=== PATIENT | male | born 1935 | race Caucasian/White ===

== ENCOUNTER 2017-07-11 09:28 | Outpatient (CLI) | payer MEDICARE ==
[2017-07-11 14:28] LABS: #Eosinphils 0.1 thou/uL (0.0-0.7); #Lymphocytes 2.1 thou/uL (1.20-3.40); #Monocytes 0.7 thou/uL (0.11-0.59); #Neutrophils 7.2 thou/uL (1.40-6.50); %Basophils 0.4 % (0.0-1.0); %Eosinophils 1.1 % (0.0-10.0); %Lymphocytes 20.7 % (21.0-51.0); %Monocytes 6.6 % (0.0-10.0); %Neutrophils 71.2 % (42.0-75.0); Hemoglobin 11.8 g/dL (14.0-18.0); Mean Corpuscular HGB CONC 32.8 g/dL (32.0-36.0); Mean Corpuscular Volume 94.5 fl (80.0-94.0); Mean Platelet Volume 7.1 fL (7.4-10.4); Platelet Count 239 thou/uL (130-400); RBC Distribution Width 13.9 % (11.5-14.5); Red Blood Cell (RBC) Count 3.79 mill/uL (4.70-6.10); White Blood Cell (WBC) Count 10.1 thou/uL (4.8-10.8)
[2017-07-11 14:33] LABS: INR-International Normal Ratio 1.3; PTT 36.3 SEC (22.9-36.1); Prothrombin Time 15.9 SEC (12.0-14.7)
[2017-07-11 14:35] LABS: Bilirubin Negative (Negative); Blood, Urine Negative (Negative); Clarity CLEAR (Clear); Glucose, Urine (Dipstick) Negative (Negative); Leukocyte Negative (Negative); Nitrite Negative (Negative); Protein, Urine (Dipstick) Negative (Neg-Trace); Specific Gravity, Urine 1.025 (1.002-1.036); Urobilinogen 0.2 mg/dL (0.2-1.0); pH, Urine 6.5 (5.0-9.0)
[2017-07-11 14:40] LABS: Bacteria/HPF None Seen HPF (None Seen); Hyaline Casts/LPF 0-3 HYALINE CAST LPF (0-3 Hyaline); Pathc Cast-AUWi Flag 0.29 (0-2.49); Squamous Epithelial 0-3 HPF (0-3); WBC/HPF 0-3 HPF (0-3)
[2017-07-11 14:50] LABS: Anion Gap 12 mmol/L (10-20); BUN (Urea Nitrogen) 26 mg/dL (8.4-25.7); Calc. Creatinine Clearance 0 mL/min (70-130); Calcium 10.1 mg/dL (7.8-10.44); Carbon Dioxide 24 mmol/L (23-31); Chloride 105 mmol/L (98-107); Estimated GFR-MDRD 85; Glucose 114 mg/dL (83-110); Potassium 4.8 mmol/L (3.5-5.1); Sodium 136 mmol/L (136-145)
--- NOTE | 2017-07-16 08:45 | EKG ---
Test Reason : Blood Pressure : / mmHG Vent. Rate : 060 BPM Atrial Rate : 067 BPM P-R Int : 000 ms QRS Dur : 204 ms QT Int : 458 ms P-R-T Axes : 000 -27 138 degrees QTc Int : 458 ms Electronic ventricular pacemaker When compared with ECG of 08-OCT-2010 06:57, Electronic ventricular pacemaker has replaced Atrial fibrillation Confirmed by RENAN WHEAT MD ([id number]) on 07/16/2017 8:44:50 AM Referred By: LEOBARDO Confirmed By:RENAN WHEAT MD
== END 2017-07-11 09:29 | disposition home or self-care (01) ==
LOC: LABBT 09:28
PROVIDERS: ATTEND Orthopaedic Surgery
DX: Z01.818 Encounter for other preprocedural examination (principal); M16.11 Unilateral primary osteoarthritis, right hip
CPT/HCPCS: 80048; 81001; 85025; 85610; 85730; 86850; 86900; 86901; 87081; 93005; 93010

== ENCOUNTER 2017-07-11 13:00 | Inpatient (IN) | payer MEDICARE ==
[2017-07-11 12:39] VITALS: BMI 24.3
--- NOTE | 2017-07-13 13:04 | HP ---
DATE OF ADMISSION: 07/17/2017 HISTORY OF PRESENT ILLNESS: The patient is a 81-year-old white male with a several year history of p rogressive right hip pain without injury. He has had progressive pain despite rest, restriction of a ctivities, use of a walker and a cane and lifestyle adjustments. His symptoms have becoming more jackson quently seen causing him to fall and interfering with day-to-day activities and quality of life inclu ding walking, getting dressed, and sleeping. PAST MEDICAL AND SURGICAL HISTORY: The patient has history of coronary artery disease, atrial fibril lation, and previous pacemaker. He has had cardiac stents and also a pituitary tumor. He has a hist ory of hypertension and seasonal allergies and previous eye surgery. He has been seen and cleared fo r surgery by Dr. Smith and Dr. Allen. CURRENT MEDICATIONS: Include Claritin, Azopt ophthalmic drops, atenolol, lisinopril, digoxin, Eliqui s, which he has stopped 3 days preoperatively, Tylenol. ALLERGIES: He is allergic to HYDROCODONE. FAMILY HISTORY: Otherwise unremarkable. SOCIAL HISTORY: Otherwise unremarkable. REVIEW OF SYSTEMS: Otherwise unremarkable. PHYSICAL EXAMINATION: GENERAL: Reveals a healthy male. HEENT: Unremarkable. NECK: Supple. CHEST: Clear. HEART: Regular rate and rhythm. ABDOMEN: Soft, nontender. RECTAL/GENITAL: Deferred. EXTREMITIES: Pertinent findings of the right hip. There is tenderness over the anterior right hip. There is decreased range of motion of the right hip and groin pain with internal rotation. There is a right antalgic gait. Leg lengths are equal. Neurovascular exam is intact. Straight leg raising is negative. X-RAY FINDINGS: X-rays of the right hip reveal severe DJD with no joint space remaining with signifi cant progression from previous x-rays. IMPRESSION: 1. Progressive degenerative arthritis, right hip. 2. History of atrial fibrillation. 3. History of atherosclerotic cardiovascular disease. 4. History of hypertension. 5. History of pacemaker. PLAN: Right total hip replacement. The nature of the surgery, length of recovery, and potential com plications such as infection, loss of motion, incomplete relief, neurovascular injury, thromboembolic phenomenon, leg length discrepancy, possible transfusion, and need for revision have been discussed in detail.
[2017-07-17] MEDS ORDERED: CEFAZOLIN/Water 2 GM/20 ML SYRINGE ONE (07:08)
[2017-07-17] MEDS ORDERED: Vancomycin HCl 1.5 GM in Sodium Chloride 0.9% 250 ML 300 ML IVPB SCH ×2 (07:45→20:00)
[2017-07-17] MEDS ORDERED: Fentanyl 100 MCG/2 ML VIAL ONE (08:00)
[2017-07-17] MEDS ORDERED: Midazolam HCl 2 mg/2 ml Vial ONE (08:00)
[2017-07-17] MEDS ORDERED: Ondansetron ODT 4 MG TAB ONE (08:30)
[2017-07-17] MEDS ORDERED: Acetaminophen 1,000 MG in Premix Bag 1 BAG IVPB PRN (09:06)
[2017-07-17] MEDS ORDERED: Promethazine HCl 25 MG/ML VIAL IM PRN (09:15)
[2017-07-17] MEDS ORDERED: fentaNYL Citrate/PF 1,250 MCG, Bupivacaine 25 ML in Sodium Chloride 0.9% 250 ML 200 ML EPIDURAL SCH (09:15)
[2017-07-17] MEDS ORDERED: Zolpidem Tartrate 5 MG TAB PO PRN ×2 (09:15→12:16)
[2017-07-17] MEDS ORDERED: Naloxone HCl 0.4 mg/ml Vial IV PRN (09:15)
[2017-07-17] MEDS ORDERED: HYDROcodone/Acetaminophen 5/325 mg Tablet PO PRN (09:15)
[2017-07-17] MEDS ORDERED: diphenhydrAMINE 50 MG/ML VIAL IVP PRN (09:15)
[2017-07-17] MEDS ORDERED: diphenhydrAMINE 50 MG/ML VIAL IM PRN (09:15)
[2017-07-17] MEDS ORDERED: Hydrocerin (Eucerin) Cream 120 gm Jar TOP PRN (09:15)
[2017-07-17] MEDS ORDERED: Promethazine HCl 25 MG SUPP PR PRN (09:15)
[2017-07-17] MEDS ORDERED: diphenhydrAMINE 25 MG CAP PO PRN ×2 (09:15→12:16)
[2017-07-17] MEDS ORDERED: Bupivacaine 0.25% 10 ML VIAL EPIDURAL PRN (09:15)
[2017-07-17] MEDS ORDERED: Naloxone HCl 0.4 mg/ml Vial IVP PRN (09:15)
[2017-07-17] MEDS ORDERED: Bupivacaine HCl 0.5%/Epinephrine 1:200,000/PF 30 ml Vial ONE (09:30)
[2017-07-17] MEDS ORDERED: Tranexamic Acid 1,000 MG in Sodium Chloride 0.9% 100 ML IVPB SCH ×2 (11:45→12:16)
--- NOTE | 2017-07-17 11:56 | OP ---
DATE OF PROCEDURE: 07/17/2017 PREOPERATIVE DIAGNOSIS: End-stage bicompartmental osteoarthritis, right hip. POSTOPERATIVE DIAGNOSIS: End-stage bicompartmental osteoarthritis, right hip. OPERATIVE PROCEDURE: Press-Fit right total hip arthroplasty. SURGEON: Umesh Tejada M.D. TRUCK SAFETY INSPECTOR: Lev Irvin PA-C. ANESTHESIA: General via endotracheal tube augmented with indwelling epidural. COMPONENTS USED: [employer] Trident PSL cluster, 60 mm cluster acetabular shell with a 0 de gree polyethylene fixed bearing insert with an Accolade Press-Fit size 4.5 hip stem with a 40 mm meta llic femoral head with +4 offset. FINDINGS: End-stage severe degenerative bicompartmental disease, bone on bone arthrosis, periarticul ar osteophyte formation, large serous effusion, hypertrophic synovium, and mild dysplasia of the acet abulum. DRAINS: None. SPECIMENS: None. COMPLICATIONS: None. COUNTS: Correct. INDICATIONS FOR SURGERY: Arcadio is a 81-year-old white male who has had progressive right hip, groi n and thigh pain for the last 10-12 years. He has failed conservative management and elected to proc eed with total hip arthroplasty as a definitive treatment of his pain. PROCEDURE IN DETAIL: After informed consent was obtained in the preoperative holding area, the patie nt was taken to the operative suite where general anesthesia was induced. The patient was then posit ioned in the lateral decubitus position. The hip was then prepped and draped in usual sterile fashio n. The patient received preoperative antibiotics. Prior to incision, time-out was called and all me mbers of the surgical team agreed upon site, surgeon, and patient. After this, a longitudinal incisi on was made directly over the trochanter, noted by palpation extending 2 fingerbreadths above and bel ow the trochanter. The deeper subcutaneous layer was undermined with Bovie electrocautery. The ilio tibial band was encountered and incised sharply and the plane below this was developed bluntly. A nikita retractor was placed to hold this opened. The lateral aspect of the trochanter and the abduct or muscles were encountered and then reflected anteriorly off the trochanter using Bovie electrocaute ry. Once this was completed, the anterior capsule was then encountered and identified and copious ca psulotomy was carried out, exposing the femoral neck and head. Dislocation maneuver was then performe d and an in situ provisional neck cut was then made using the oscillating saw. Attention was then tu rned to acetabular preparation and sequential reaming was carried out up to the appropriate diameter and a trial was then malleted into place with good firm resistance and no pullout. The permanent fabien tabular shell was then malleted squarely into place, as was the appropriate liner. Once completed, t he wound was copiously irrigated and attention was then turned to femoral preparation. Flexion and ex ternal rotation was performed of the exposed thigh and femoral elevators were then placed at the prox imal aspect of the wound. Canal finder was used to establish the length of the canal and sequential reaming was carried out, followed by broaching. Once the appropriate stability was established with the trial broaches with both flexion, extension and rotational stability, we did trial with neutral a nd 2 mm offset incremental necks. Once the appropriate size was decided upon, with good stability no romel with flexion, extension, internal and external rotation and shuck being negative, we removed the femoral trial broach and malletted into place the permanent prosthesis with good firm fit, which was also stable to rotation. Again, the hip felt very stable to flexion, extension, internal and externa l rotation. Leg lengths appeared near anatomic clinically and we were quite happy with prosthesis pl acement. Copious irrigation was then carried out through the entirety of the wound. Primary closure of the abductors was accomplished with interrupted #2 Vicryl [id number] stitches and the IT ban d was then closed with interrupted #2 Vicryl, oversewn with a #2 running barbed Quill stitch. Subcut aneous fascia was closed with running barbed Quill stitch and a subcuticular Monocryl barbed Quill st itch was used for skin closure and augmented with skin cement. A sterile dressing was applied. The p rocedure was terminated without any complication. All counts were correct. The patient was awakened in the operative suite and taken to the recovery room in stable condition.
[2017-07-17] MEDS ORDERED: Glycopyrrolate 0.2 MG/ML 5 ML SYRINGE ONE (12:02)
[2017-07-17] MEDS ORDERED: Lidocaine 1% PF 5 ML VIAL ONE (12:02)
[2017-07-17] MEDS ORDERED: PROPOFOL 200 MG/20 ML VIAL ONE (12:02)
[2017-07-17] MEDS ORDERED: PHENYLEPHRINE-NS 100 MCG/ML 10 ML SYRINGE ONE (12:02)
[2017-07-17] MEDS ORDERED: HYDROcodone/Acetaminophen 10/325 mg Tablet PO PRN ×2 (12:16)
[2017-07-17] MEDS ORDERED: Ondansetron HCl/PF 4 MG/2 ML Vial IVP PRN (12:16)
[2017-07-17] MEDS ORDERED: Promethazine HCl 25 MG/ML VIAL SLOW IVP PRN (12:16)
[2017-07-17] MEDS ORDERED: Fentanyl 100 MCG/2 ML VIAL SLOW IVP PRN ×2 (12:16)
[2017-07-17] MEDS ORDERED: Acetaminophen 325 MG TAB PO PRN (12:16)
[2017-07-17] MEDS ORDERED: traMADol HCl 50 MG TAB PO PRN (12:16)
--- NOTE | 2017-07-17 12:40 | RAD ---
RIGHT HIP TWO VIEWS: History: Post op total hip replacement. FINDINGS/IMPRESSION: There are post op changes of total knee hip arthroplasty in good position and alignment. Soft tissue air is present. POS: [facility]
[2017-07-17] MEDS ORDERED: Lisinopril/Hydrochlorothiazide 10 mg/12.5 mg Tablet PO SCH (13:00)
[2017-07-17] MEDS ORDERED: Digoxin 0.25 MG TAB PO SCH (13:00)
[2017-07-17] MEDS ORDERED: Atenolol 50 MG TAB PO SCH (13:00)
[2017-07-17] MEDS: Ketorolac Tromethamine 30 MG/ML VIAL IVP SCH ×3 (14:17→23:46)
[2017-07-17] MEDS: CEFAZOLIN/Water 2 GM/20 ML SYRINGE SLOW IVP SCH ×2 (15:44→23:47)
[2017-07-17] MEDS: Brinzolamide 1% Ophth Soln 10 ml Bottle EA EYE SCH ×2 (17:55→20:41)
[2017-07-17] MEDS: Sodium Chloride 0.9% 1,000 ML IV SCH ×2 (17:55→20:49)
[2017-07-18] MEDS: HYDROcodone/Acetaminophen 5/325 mg Tablet PO PRN (02:45)
[2017-07-18] MEDS: Ketorolac Tromethamine 30 MG/ML VIAL IVP SCH ×3 (05:33→18:26)
[2017-07-18 05:36] LABS: Hemoglobin 10.2 g/dL (14.0-18.0); Mean Corpuscular HGB CONC 33.6 g/dL (32.0-36.0); Mean Corpuscular Hemoglobin 30.9 pg (27.0-31.0); Mean Platelet Volume 7.1 fL (7.4-10.4); Platelet Count 205 thou/uL (130-400); RBC Distribution Width 13.3 % (11.5-14.5); Red Blood Cell (RBC) Count 3.31 mill/uL (4.70-6.10); White Blood Cell (WBC) Count 7.3 thou/uL (4.8-10.8)
[2017-07-18] MEDS: Brinzolamide 1% Ophth Soln 10 ml Bottle EA EYE SCH ×3 (08:03→20:49)
[2017-07-18] MEDS: Atenolol 50 MG TAB PO SCH (08:03)
[2017-07-18] MEDS: Senokot S 8.6-50 MG TAB PO SCH ×2 (08:04→20:49)
[2017-07-18] MEDS: Lisinopril/Hydrochlorothiazide 10 mg/12.5 mg Tablet PO SCH (08:05)
[2017-07-18] MEDS: Digoxin 0.25 MG TAB PO SCH (08:05)
[2017-07-18] MEDS: Ferrous Gluconate 324 MG TAB PO SCH ×2 (08:05→17:55)
[2017-07-18] MEDS: Multivitamin W/ Minerals 1 TAB PO SCH (08:05)
[2017-07-18] MEDS ORDERED: Enoxaparin Sodium 40 MG/0.4 ML SYRINGE SC SCH (09:00)
[2017-07-18] MEDS ORDERED: Prevnar 13-Val Conj/PF 0.5 ML SYRINGE IM ONE (09:00)
[2017-07-18] MEDS: Ondansetron ODT 4 MG TAB PO PRN (10:37)
--- NOTE | 2017-07-18 15:21 | CON ---
DATE OF CONSULTATION: 07/18/2017 ATTENDING PHYSICIAN: Umesh Tejada M.D. REASON FOR CONSULTATION: Medical management. HISTORY OF PRESENT ILLNESS: This is a 81-year-old gentleman with a history of coronary artery diseas e, hypertension, paroxysmal atrial fibrillation, chronic osteoarthritis, who was admitted for failed outpatient management of osteoarthritis of his right hip. He has been followed by Dr. Tejada as an ou tpatient and due to his persistent pain and inability to function well, he was admitted for a total h ip replacement. The patient tolerated the procedure well. No perioperative complications. He did u ndergo a preoperative screening by myself as well as Dr. Allen for Cardiology, and he was adequat e risk at that time, and he has had an uneventful postoperative stay so far. He is to initiate his p hysical therapy now and hopefully will do well with that as well. PAST MEDICAL HISTORY: Coronary artery disease, paroxysmal atrial fibrillation, history of pacemaker placement, cardiac stents, hypertension, iron deficient anemia, recent bout of infectious colitis. MEDICATIONS: Include atenolol 50 mg once daily, lisinopril 5 mg once daily, digoxin 0.25 mg once kristy ly, Eliquis 5 mg daily, Mobic which she has not been taking recently p.r.n. pain, Claritin 10 mg abdullahi y, Azopt eyedrops, Tylenol p.r.n. ALLERGIES: HYDROCODONE as well as METRONIDAZOLE and TRAMADOL. PAST SURGICAL HISTORY: Cataract repair in 2017, cardiac stents in 1999, hernia repair in 1999 and 20 10, right hand surgery in 2008, pacemaker placement at 44 years of age, colonoscopy, and eye surgery. FAMILY HISTORY: Father with heart disease. Mother with diabetes. Siblings with d iabetes, mental illness and cancer. SOCIAL HISTORY: He is . Occasional beer and wine. No drug use. He is retired. REVIEW OF SYSTEMS: As per the history of present illness. GENERAL: Denies any recent fevers, chills or recent illness. HEENT: Some hearing problems, no headaches, no visual or hearing changes. CARDIAC: Followed by Dr. Allen for his coronary artery disease and paroxysmal atrial fibrillatio n. He is rate controlled with the digoxin. PULMONARY: No cough or hemoptysis. GASTROINTESTINAL: No nausea, vomiting, abdominal pain, diarrhea has resolved with antibiotics one mo nth ago. GENITOURINARY: No history of urinary tract infections. MUSCULOSKELETAL: As per the history of present illness. PHYSICAL EXAMINATION: VITAL SIGNS: Temperature 99.5, pulse of 60, respirations 18, blood pressure 113/81, pulse ox is 92%- 94% on room air. GENERAL: He is awake and alert, in no acute distress. Speech is clear. Mucosa is moist. NECK: Supple. HEART: Irregularly irregular. LUNGS: Clear. ABDOMEN: Soft, nontender, nondistended. No hepatosplenomegaly. EXTREMITIES: 2+ peripheral pulses bilaterally. Dressing in place on the right hip. No edema. LABORATORY AND X-RAY FINDINGS: Reviewed. White blood cell count of 7300, hemoglobin and hematocrit 10.2 and 30.4, platelets of 205. Preop EKG was reviewed. PT, PTT were normal. Electrolytes were no rmal. Glucose of 114. Liver enzymes are normal. Urinalysis showed no active disease. ASSESSMENT AND PLAN: This is a 81-year-old gentleman with known history of heart disease including p aroxysmal atrial fibrillation, coronary artery disease, hypertension, as well as chronic degenerative joint disease, he is now status post right total arthroplasty. 1. Postoperative care as per Orthopedics. The patient is initiating therapy. 2. Hypertension. We will continue his outpatient meds. 3. Atrial fibrillation, is rate controlled. I will continue his oral medications as well. 4. Coronary artery disease, stable. 5. Gastrointestinal protection. We will watch closely and start H2 kaycee. 6. Deep venous thrombosis prophylaxis. The patient will reinitiate his anticoagulants. When okay w ith Ortho, early ambulation as well.
--- NOTE | 2017-07-18 15:47 | PRG ---
DATE OF SERVICE: 07/18/2017 SUBJECTIVE: Arcadio is a 81-year-old male who is postop day #1 from right total hip arthroplasty. Roney solo is doing relatively well. He has no complaints. He was comfortable last night. He is tolerating a regular diet and is comfortable. OBJECTIVE: VITAL SIGNS: Temperature 99.5, pulse 60, blood pressure 121/75, O2 saturation 92% on room air, . GENERAL: Alert and oriented to person, place, time, and situation. Grossly nonfocal. SKIN: Incision is clean and closed without any strike through. NEUROLOGIC: He is neurovascularly intact in the involved extremities. DATA: Hemoglobin 10, hematocrit 30.4. ASSESSMENT: 1. A 81-year-old white male, postop day #1 right total hip arthroplasty. 2. Postoperative hemorrhagic anemia. PLAN: Continue current care. Probable home discharge tomorrow.
[2017-07-18] MEDS: Sodium Chloride 0.9% 1,000 ML IV SCH ×2 (17:53→19:15)
[2017-07-19] MEDS: Ketorolac Tromethamine 30 MG/ML VIAL IVP SCH ×2 (00:23→05:27)
[2017-07-19] MEDS: Sodium Chloride 0.9% 1,000 ML IV SCH ×2 (03:06→14:44)
[2017-07-19 05:43] LABS: Hemoglobin 10.6 g/dL (14.0-18.0); Mean Corpuscular HGB CONC 33.1 g/dL (32.0-36.0); Mean Corpuscular Hemoglobin 31.2 pg (27.0-31.0); Mean Corpuscular Volume 94.4 fl (80.0-94.0); Mean Platelet Volume 7.4 fL (7.4-10.4); Platelet Count 199 thou/uL (130-400); RBC Distribution Width 13.5 % (11.5-14.5); White Blood Cell (WBC) Count 9.1 thou/uL (4.8-10.8)
--- NOTE | 2017-07-19 08:23 | PRG ---
DATE OF SERVICE: 07/19/2017 Postop day #2 from right total hip replacement. SUBJECTIVE: The patient is doing well. He is doing better yesterday afternoon when he tolerated therapy. states that he has been more awake and alert and cooperative. Pain is well controlled with anesthesia, no bowel movements, but positive flatus, no nausea or vomiting. He denies chest pain, shortness of breath, palpitations. PHYSICAL EXAMINATION: VITAL SIGNS: Temperature 98.7, pulse of 64, respirations 18, blood pressure 120 /77, pulse oximetry is 95% on room air. GENERAL: He is awake and alert. Speech is clear. NECK: Supple. HEART: irregular rate and rhythm. LUNGS: Clear. ABDOMEN: With positive bowel sounds, soft, nontender, nondistended. EXTREMITIES: With no edema. LABORATORY DATA: White blood cell count 9,100, hemoglobin and hematocrit are 10.6 and 32.1, platelets of 199. ASSESSMENT AND PLAN: This is a 81-year-old gentleman with a history of severe degenerative joint disease, now status post right total hip replacement and doing well. 1. Postop care per ortho. He is doing well with therapy as of yesterday afternoon. 2. Hypertension. We will continue his medications, it is well controlled. 3. Atrial fibrillation, rate controlled. We will continue digoxin. 4. Disposition: Possibly 1 more day due to only having had 1/2 day of therapy so far, but we will await Dr. Tejada's opinion. [facility] SYSTEMLebron
[2017-07-19] MEDS: Multivitamin W/ Minerals 1 TAB PO SCH (09:24)
[2017-07-19] MEDS: Atenolol 50 MG TAB PO SCH (09:24)
[2017-07-19] MEDS: Ferrous Gluconate 324 MG TAB PO SCH ×2 (09:24→16:44)
[2017-07-19] MEDS: Senokot S 8.6-50 MG TAB PO SCH ×2 (09:24→21:23)
[2017-07-19] MEDS: Lisinopril/Hydrochlorothiazide 10 mg/12.5 mg Tablet PO SCH (09:25)
[2017-07-19] MEDS: Digoxin 0.25 MG TAB PO SCH (09:25)
[2017-07-19] MEDS: Brinzolamide 1% Ophth Soln 10 ml Bottle EA EYE SCH ×3 (09:27→21:23)
--- NOTE | 2017-07-19 10:53 | PRG ---
DATE OF SERVICE: 07/19/2017 SUBJECTIVE: Arcadio is a 81-year-old white male who is postop day #2 from a right total hip arthropl asty. He has very little in the way of complaints. His pain continues to improve. He still has his epidural and his Aslazar in place. OBJECTIVE: VITAL SIGNS: Temperature is 98.5, pulse 65, respiratory rate 18, O2 saturation 94% on room air, his blood pressure is between 120 and 113 systolic. GENERAL: He is alert and oriented to person, place, time, and situation. Grossly nonfocal. Cranial nerves are grossly intact. EXTREMITIES: He is neurovascularly intact in the involved extremity and there is no strikethrough on his dressing. Hemoglobin and hematocrit are 10.6 and 32.1. ASSESSMENT: 1. A 81-year-old white male postop day #2 right total hip arthroplasty, doing relatively well. 2. Postoperative hemorrhagic anemia, mild. PLAN: We will discontinue epidural and Salazar catheter today. Anticipate home discharge tomorrow to the point where he becomes a little more independent with activities of daily living and in and out o f bed independently. We will recheck tomorrow.
[2017-07-19] MEDS: Apixaban 2.5 MG TAB PO SCH (21:23)
[2017-07-19] MEDS: Ondansetron ODT 4 MG TAB PO PRN (21:24)
[2017-07-19] MEDS: HYDROcodone/Acetaminophen 5/325 mg Tablet PO PRN (21:24)
[2017-07-19] MEDS ORDERED: Tamsulosin HCl 0.4 MG CAP PO SCH (22:00)
[2017-07-20] MEDS: Sodium Chloride 0.9% 1,000 ML IV SCH ×2 (00:31→13:17)
[2017-07-20] MEDS: HYDROcodone/Acetaminophen 5/325 mg Tablet PO PRN (05:21)
[2017-07-20] MEDS: Ondansetron ODT 4 MG TAB PO PRN (05:21)
--- NOTE | 2017-07-20 08:58 | PRG ---
DATE OF SERVICE: 07/20/2017 SUBJECTIVE: The patient is feeling better. He is tolerating physical therapy, just continues to be weak. His states that he is more confused than his baseline, slow to respond to questions. He has been able to urinate, but still no bowel movement. Positive flatus. OBJECTIVE: VITAL SIGNS: Temperature 98.1, pulse of 88, respirations 18, pulse ox 99% on room air, blood pressur e 146/76. GENERAL: He is awake and alert, in no acute distress. He answers questions appropriately, but he is slow to respond. HEENT: Mucosa is moist. NECK: Supple. HEART: Irregular. LUNGS: Clear. ABDOMEN: Soft, positive bowel sounds. EXTREMITIES: No edema. NEUROLOGIC: He moves both extremities. ASSESSMENT AND PLAN: This is a 81-year-old gentleman with severe degenerative joint disease, now sta tus post right total hip replacement. 1. Postoperative care as per Orthopedics. He is tolerating therapy. Continue home health with ther lisa. Considering inpatient rehab if he fails outpatient. 2. Confusion. We will try to limit narcotic use and check a urinalysis prior to discharge. Discuss ed with the about giving Tylenol for his wrist pain and then narcotics if it is more severe. 3. Obstipation. We will continue fluids, increase juice intake, MiraLax p.r.n. DISPOSITION: Hopefully home later today if he tolerates therapy this morning; again, consider inpati ent rehabilitation if he does not.
[2017-07-20] MEDS: Atenolol 50 MG TAB PO SCH (09:08)
[2017-07-20] MEDS: Apixaban 2.5 MG TAB PO SCH (09:08)
[2017-07-20] MEDS: Senokot S 8.6-50 MG TAB PO SCH (09:08)
[2017-07-20] MEDS: Brinzolamide 1% Ophth Soln 10 ml Bottle EA EYE SCH (09:08)
[2017-07-20] MEDS: Multivitamin W/ Minerals 1 TAB PO SCH (09:09)
[2017-07-20] MEDS: Digoxin 0.25 MG TAB PO SCH (09:09)
[2017-07-20] MEDS: Lisinopril/Hydrochlorothiazide 10 mg/12.5 mg Tablet PO SCH (09:09)
[2017-07-20] MEDS: Ferrous Gluconate 324 MG TAB PO SCH (09:10)
[2017-07-20 13:02] VITALS: BP 135/77; TEMP 98
== END 2017-07-20 13:15 | disposition home or self-care (01) | DRG 470 ==
LOC: SJJU 07-17 06:31
PROVIDERS: ADMIT Orthopaedic Surgery; ATTEND Orthopaedic Surgery
PROC: 0SR902A Replacement of Right Hip Joint with Metal on Polyethylene Synthetic Substitute, Uncemented, Open Approach (ICD-10-PCS; principal; 2017-07-17)
DX: M16.11 Unilateral primary osteoarthritis, right hip (principal); I48.0 Paroxysmal atrial fibrillation; D62 Acute posthemorrhagic anemia; I25.10 Atherosclerotic heart disease of native coronary artery without angina pectoris; Z95.5 Presence of coronary angioplasty implant and graft; I10 Essential (primary) hypertension; Z95.0 Presence of cardiac pacemaker; D49.7 Neoplasm of unspecified behavior of endocrine glands and other parts of nervous system; J30.2 Other seasonal allergic rhinitis; Z88.5 Allergy status to narcotic agent; Z79.899 Other long term (current) drug therapy; Z79.01 Long term (current) use of anticoagulants; K59.00 Constipation, unspecified; R41.0 Disorientation, unspecified
CPT/HCPCS: 36415; 85027; 90471; 90670; C1776; G0009; G8978-GP-CL; G8979-GP-CK; G8987-GO-CK; G8988-GO-CI; J0131; J0670; J1650; J1885; J2001; J2250; J2704; J3010; J3370; J3490; J7050; Q0162

== ENCOUNTER 2019-03-01 13:27 | Outpatient (CLI) | payer MEDICARE ==
[~2019-03-01 13:27] MED LIST: Iopamidol-370 76% 500 ML 1 ML ONE
--- NOTE | 2019-03-01 14:39 | CT ---
EXAM: CT brain without and with contrast HISTORY: Memory loss and gait abnormality COMPARISON: 02/06/2013 TECHNIQUE: Multiple contiguous axial images were obtained and a CT of the brain without and with cont rast. FINDINGS: There are scattered hypodensities in the subcortical and periventricular white matter consi stent with small vessel ischemic disease. There is a stable masslike appearance within the sella turcica. There is no evidence of hydrocephalus, intracranial hemorrhage, or extra-axial fluid collect ion. No abnormal enhancement is seen. The calvarium and overlying soft tissues are unremarkable. The visualized paranasal sinuses and masto id air cells are well aerated. IMPRESSION: No evidence of acute intracranial abnormality
== END 2019-03-01 13:28 | disposition home or self-care (01) ==
LOC: BICCT 13:27
PROVIDERS: ATTEND Family Medicine
DX: R41.3 Other amnesia (principal); R26.9 Unspecified abnormalities of gait and mobility
CPT/HCPCS: 70470; 82565; Q9967